=== PATIENT | male | born 1995 ===

== ENCOUNTER 2023-11-17 15:12 | Outpatient (REF) | payer OTHER, SELFPAY ==
[2023-11-18 09:34] LABS: HBS Num1 0.46 mIU/mL (0-7.99); HIV AB/AG Nonreactive (Nonreactive); HIV Num 1 0.05 S/CO (0.00-0.99); Hepatitis B Surface Antigen Negative (Negative); ~HepC Num1 0.11 S/CO (0.00-0.79); ~Hepatitis B Surface Antibody NONREACTIVE (Nonreactive); ~Hepatitis C Antibody Nonreactive (Nonreactive)
[2023-11-19 04:44] LABS: RPR Rapid Plasma Reagin REACTIVE (NON-REACTIVE)
[2023-11-19 16:44] LABS: HCV Log PCR <1.18 NOT DETECTED Log IU/mL (NOT DETECTED); HepC Viral Load <15 NOT DETECTED IU/mL (NOT DETECTED)
[2023-11-20 13:23] LABS: TS Negative Control Passed; TS Panel A 0; TS Panel B 0; TS Positive Control Passed; TSpotTB Negative (Negative)
== END 2023-11-17 15:13 | disposition home or self-care (01) ==
LOC: HO.LAB 15:12
PROVIDERS: PCP Family Medicine; Visit Provider Internal Medicine
DX: A53.9 Syphilis, unspecified (principal); Z11.1 Encounter for screening for respiratory tuberculosis
CPT/HCPCS: 36415; 86481; 86592; 86593; 86706; 86803; 87340; 87389; 87522; 99202

== ENCOUNTER 2023-11-17 15:12 | Outpatient (AMB) | payer OTHER, SELFPAY ==
--- NOTE | 2023-11-17 15:12 | MHC.OFFVIS ---
Intake Vital Signs 11/17/23 15:14 Height 5 ft 10 in Weight 165 lb BMI 23.7 Pulse 69 Pulse Source Pulse Oximeter Pulse Oximetry (%) 98 Intake Visit Reasons: reff pioneer uro/syphillis Allergies Sulfa (Sulfonamide Antibiotics) Allergy (Unknown, Verified 11/17/23 15:15) Unknown HPI reff pioneer uro/syphillis HPI Details He is here for evaluation syphilis. He has never had penicillin treatment he says. He has positive syphilis serology six months ago and received 14 days Doxycycline. He had been treated in 2019 at [facility] with Doxycycline also. He is unsure of HIV status. [facility] Medical History Syphilis Review of Systems Const All systems reviewed & are unremarkable except as noted in HPI and below Physical Exam Vital Signs: Last Vital Signs Pulse 69 11/17/23 15:14 Pulse Ox 98 11/17/23 15:14 BMI result Body Mass Index 23.7 Const General: cooperative Orientation/consciousness: patient oriented x3 HEENT Head: Yes normal to inspection Mouth: Normal oral and palatal mucosa present Eyes General: appearance normal, both eyes and all related structures Pupils: Equal, round and reactive pupils present Resp Effort & Inspection: normal respiratory effort Cardio Rate: regular rate Rhythm: regular rhythm GI Palpation (GI): Soft to palpation and nontender General: Yes no CVA tenderness Back/Spine/Pelvis Back: no CVA tenderness Skin General skin exam: no rashes or lesions noted Neuro General: patient oriented x3 Cranial nerves: Yes CN's II-XII intact bilaterally and Yes Equal, round and reactive pupils present Extrem General: Yes normal to inspection Psych Appearance: grossly normal Assessment & Plan Assessment & Plan (1) Syphilis: Comment: He has had no lesions but complains of pelvic pain. He denies other STIs Code(s): A53.9 - Syphilis, unspecified Plan: Would give PCN V 2.4 mU weekly for three weeks. Check HIV and Hepatitis C and T spot as well as urine GC and chlamydia. Return in one month and likely check syphilis titer then. Orders: Orders RPR Monitor reflex titer 11/17/23 A53.9 - Syphilis, unspecified Hepatitis C Antibody 11/17/23 A53.9 - Syphilis, unspecified Hepatitis C Viral Load 11/17/23 A53.9 - Syphilis, unspecified Hepatitis B Surface Antibody 11/17/23 A53.9 - Syphilis, unspecified HIV Ab/Ag 11/17/23 A53.9 - Syphilis, unspecified T Spot TB 11/17/23 A53.9 - Syphilis, unspecified Hepatitis B Surface Antigen 11/17/23 A53.9 - Syphilis, unspecified Medications: New penicillin G benzathine 2.4 mmu (4 mL) IM QWEEK 4 mL 2RF penicillin G benzathine 2.4 mmu (4 mL) IM QWEEK 4 mL 2RF doxycycline hyclate 100 mg PO BID 60 caps 0RF 30 days penicillin G benzathine 2.4 mmu (4 mL) IM QWEEK 4 mL 2RF 3 doses Coding Level of Care Code New Pt Level 3 (85194) Diagnoses Syphilis A53.9
[2023-11-17 15:14] VITALS: PULSE 69; O2SAT 98; BMI 23.7
== END 2023-11-17 16:12 | disposition home or self-care (01) ==
PROVIDERS: PCP Emergency Medicine Emergency Medical Services; Visit Provider Internal Medicine
DX: A53.9 Syphilis, unspecified (principal)
CPT/HCPCS: 99203

== ENCOUNTER 2023-11-24 12:50 | Outpatient (AMB) | payer OTHER, SELFPAY ==
--- NOTE | 2023-11-24 13:11 | MHC.OFFVIS ---
Intake Vital Signs 11/24/23 13:19 Height 5 ft 10 in Weight 174 lb BMI 25.0 BP 111/67 Blood Pressure Location Lt brachial Position Sitting Pulse 80 Pulse Source Pulse Oximeter Pulse Oximetry (%) 98 Intake Visit Reasons: Injection,Peniccilin Allergies Sulfa (Sulfonamide Antibiotics) Allergy (Unknown, Verified 11/24/23 13:20) Unknown [facility] Medical History Syphilis Physical Exam Vital Signs: Last Vital Signs Pulse 80 11/24/23 13:19 BP 111/67 11/24/23 13:19 Pulse Ox 98 11/24/23 13:19 BMI result Body Mass Index 25.0 Coding
[2023-11-24 13:19] VITALS: BP 111/67; PULSE 80; O2SAT 98; BMI 25.0
--- NOTE | 2023-11-24 13:25 | AM.OFFVISNUR ---
Intake Vital Signs 11/24/23 13:19 Height 5 ft 10 in Weight 174 lb BMI 25.0 BP 111/67 Blood Pressure Location Lt brachial Position Sitting Pulse 80 Pulse Source Pulse Oximeter Pulse Oximetry (%) 98 Intake Visit Reasons: Injection,Peniccilin Drum Attendant Required: No Allergies Sulfa (Sulfonamide Antibiotics) Allergy (Unknown, Verified 11/24/23 13:20) Unknown Nursing Note Ace is here for PCN IM injection. No c/o. Pt tolerated injection well. First injection of 3. Pt will return next week for second injection. Pt verbalizes understanding and agrees with plan. No further questions. Office Meds penicillin G benzathine 2,400,000 unit/4 mL intramuscular syringe Performing Provider: Liliya Dolan MD Performing Location: [facility] [place] [facility] Administered by: Diamond Delgado on 11/24/23 13:41 Dose Route Admin Location Dispensed Lot Number Expiration Date [facility] [place] Rip Machine Operator 2.4 mmu IM LGM 4 mL [id number] 06/12/26 36274-432-14 [employer] Coding Level of Care Code Established Pt Est Pt Level 1 (82824) Patient Type Established History Problem Focused Medical Decision Making Straight Forward Time Spent (min) 15 Assessment & Plan Assessment & Plan Plan Return in 1 week for second injection, appt. scheduled. Orders: Orders AMB Penicillin Injection Today A53.9 - Syphilis, unspecified
== END 2023-11-24 13:45 | disposition home or self-care (01) ==
LOC: HO.HID 12:51
PROVIDERS: PCP Family Medicine; Visit Provider Internal Medicine
DX: A53.9 Syphilis, unspecified (principal)

== ENCOUNTER → 2023-11-24 12:50 | Outpatient (BNVA) | payer OTHER, SELFPAY | PROVIDERS: PCP Family Medicine; Visit Provider Internal Medicine | DX: A53.9 Syphilis, unspecified (principal) | CPT/HCPCS: 96372; 99211; J0561 ==

== ENCOUNTER 2023-12-01 13:13 | Outpatient (AMB) | payer OTHER, SELFPAY ==
[2023-12-01 13:33] VITALS: BP 121/67; PULSE 72; O2SAT 99; BMI 24.7
--- NOTE | 2023-12-01 13:33 | AM.OFFVISNUR ---
Intake Vital Signs 12/01/23 13:33 Height 5 ft 10 in Weight 172 lb BMI 24.7 BP 121/67 Blood Pressure Location Lt brachial Position Sitting Pulse 72 Pulse Source Pulse Oximeter Pulse Oximetry (%) 99 Intake Visit Reasons: Injection,penicillin Oracle R12 Developer Required: No Allergies Sulfa (Sulfonamide Antibiotics) Allergy (Unknown, Verified 12/01/23 13:37) Unknown Nursing Note Ace is here for second injection of 3. He reported left leg discomfort following his first injection last week x4-5 days. He reports pain has resolved. Injection given on right side today. Pt tolerated injection well. Pt will return for third injection in 1 week. No further questions. Pt verbalizes understanding and agrees with plan. Office Meds penicillin G benzathine 2,400,000 unit/4 mL intramuscular syringe Performing Provider: Liliya Dolan MD Performing Location: [facility] [place] [facility] Administered by: Diamond Delgado on 12/01/23 13:51 Dose Route Admin Location Dispensed Lot Number Expiration Date [facility] Rough Planer Tender 2.4 mmu IM RGM 4 mL [id number] 06/12/26 91658-780-23 [employer] Coding Level of Care Code Established Pt Est Pt Level 1 (73176) Patient Type Established History Problem Focused Medical Decision Making Straight Forward Time Spent (min) 15 Assessment & Plan Assessment & Plan Orders: Orders AMB Penicillin Injection Today A53.9 - Syphilis, unspecified
== END 2023-12-01 13:54 | disposition home or self-care (01) ==
LOC: HO.HID 13:13
PROVIDERS: PCP Family Medicine; Visit Provider Internal Medicine
DX: A53.9 Syphilis, unspecified (principal)

== ENCOUNTER → 2023-12-01 13:13 | Outpatient (BNVA) | payer OTHER, SELFPAY | PROVIDERS: PCP Family Medicine; Visit Provider Internal Medicine | DX: A53.9 Syphilis, unspecified (principal) | CPT/HCPCS: 96372; 99211; J0561 ==

== ENCOUNTER 2023-12-08 13:18 | Outpatient (AMB) | payer OTHER, SELFPAY ==
[2023-12-08 13:19] VITALS: BP 117/73; PULSE 61; O2SAT 98; BMI 25.0
--- NOTE | 2023-12-08 13:19 | AM.OFFVISNUR ---
Intake Vital Signs 12/08/23 13:19 Height 5 ft 10 in Weight 174 lb BMI 25.0 BP 117/73 Blood Pressure Location Lt brachial Position Sitting Pulse 61 Pulse Source Pulse Oximeter Pulse Oximetry (%) 98 Intake Visit Reasons: injection,penicillin Cvt Tech Required: No Allergies Sulfa (Sulfonamide Antibiotics) Allergy (Unknown, Verified 12/08/23 13:29) Unknown Nursing Note Pt is here for his third and final Penicillin injection. No c/o. Pt tolerated injection well. Pt was advised he will receive a call back re: CINTIA. Pt verbalizes understanding and agrees with plan. No further questions. Office Meds penicillin G benzathine 2,400,000 unit/4 mL intramuscular syringe Performing Provider: Liliya Dolan MD [place] [facility] [place] [facility] Administered by: Diamond Delgado on 12/08/23 13:36 Dose Route Admin Location Dispensed Lot Number Expiration Date [facility] Motor Pool Driver 2.4 mmu IM LGM 4 mL [id number] 06/12/26 38691-171-52 [employer] Coding Level of Care Code Established Pt Est Pt Level 1 (04005) Patient Type Established History Problem Focused Medical Decision Making Straight Forward Time Spent (min) 15 Assessment & Plan Assessment & Plan Orders: Orders AMB Penicillin Injection Today A53.9 - Syphilis, unspecified
== END 2023-12-08 13:42 | disposition home or self-care (01) ==
LOC: HO.HID 13:18
PROVIDERS: PCP Emergency Medicine Emergency Medical Services; Visit Provider Internal Medicine
DX: A53.9 Syphilis, unspecified (principal)

== ENCOUNTER → 2023-12-08 13:18 | Outpatient (BNVA) | payer OTHER, SELFPAY | PROVIDERS: PCP Emergency Medicine Emergency Medical Services; Visit Provider Internal Medicine | DX: A53.9 Syphilis, unspecified (principal) | CPT/HCPCS: 96372; J0561 ==

== ENCOUNTER 2024-03-17 12:10 | Outpatient (REF) | payer OTHER, SELFPAY ==
[2024-03-20 12:59] LABS: RPR Rapid Plasma Reagin REACTIVE (NON-REACTIVE)
== END 2024-03-17 12:11 | disposition home or self-care (01) ==
LOC: HO.LAB 12:10
PROVIDERS: Visit Provider Internal Medicine
DX: Z11.3 Encounter for screening for infections with a predominantly sexual mode of transmission (principal)
CPT/HCPCS: 36415; 86592; 86593

== ENCOUNTER 2024-03-29 15:05 | Outpatient (AMB) | payer OTHER, SELFPAY ==
--- NOTE | 2024-03-29 15:11 | A.OFFVIS_ITS ---
Vital Signs 03/29/24 15:13 Height 5 ft 10 in Weight 166 lb BMI 23.8 Pulse 85 Pulse Source Pulse Oximeter Pulse Oximetry (%) 98 Oxygen Delivery Method Room Air Intake Visit Reasons: f/u 3 mth labs recheck rpr Allergies Sulfa (Sulfonamide Antibiotics) Allergy (Unknown, Verified 03/29/24 15:13) Unknown HPI HPI f/u 3 mth labs recheck rpr: Details: He has RPR 11/17/2023 and 03/17/2024 both 1:2 He has no rash at this time and just some occasional fatigue and back pain. He denies syphilis reexposure. [facility] Medical History Syphilis Review of Systems Const All systems reviewed & are unremarkable except as noted in HPI and below Physical Exam Vital Signs: Last Vital Signs Pulse 85 03/29/24 15:13 Pulse Ox 98 03/29/24 15:13 Oxygen Delivery Method Room Air 03/29/24 15:13 BMI result Body Mass Index 23.8 Const General: cooperative Orientation/consciousness: patient oriented x3 HEENT Head: Yes normal to inspection Mouth: Normal oral and palatal mucosa present Eyes General: appearance normal, both eyes and all related structures Pupils: Equal, round and reactive pupils present Resp Effort & Inspection: normal respiratory effort Cardio Rate: regular rate Rhythm: regular rhythm GI Palpation (GI): Soft to palpation and nontender General: Yes no CVA tenderness Back/Spine/Pelvis Back: no CVA tenderness Skin General skin exam: no rashes or lesions noted Neuro General: patient oriented x3 Cranial nerves: Yes CN's II-XII intact bilaterally and Yes Equal, round and reactive pupils present Extrem General: Yes normal to inspection Psych Appearance: grossly normal Assessment & Plan Assessment & Plan (1) Syphilis: Comment: He has still syphilis titer 1:2 but denies reinfection Code(s): A53.9 - Syphilis, unspecified Category: Medical Plan: Re check syphilis titer in June 2024. Treat any current partners. No treatment at this time, may be serofast at this value Orders: Orders RPR Monitor reflex titer 3 Months A53.9 - Syphilis, unspecified Medications: New doxycycline hyclate 100 mg PO BID 60 caps 1RF 30 days Coding Level of Care Code Est Pt Level 3 (02415) Diagnoses Syphilis A53.9
[2024-03-29 15:13] VITALS: PULSE 85; O2SAT 98; BMI 23.8
== END 2024-03-29 15:56 | disposition home or self-care (01) ==
LOC: HO.HID 15:05
PROVIDERS: PCP Emergency Medicine Emergency Medical Services; Visit Provider Internal Medicine
DX: A53.9 Syphilis, unspecified (principal)
CPT/HCPCS: 99213

== ENCOUNTER → 2024-03-29 15:05 | Outpatient (BNVA) | payer OTHER, SELFPAY | PROVIDERS: PCP Emergency Medicine Emergency Medical Services; Visit Provider Internal Medicine | DX: A53.9 Syphilis, unspecified (principal) | CPT/HCPCS: 99212 ==

== ENCOUNTER 2024-06-23 16:22 | Outpatient (REF) | payer OTHER, SELFPAY ==
[2024-06-27 15:34] LABS: RPR Rapid Plasma Reagin REACTIVE (NON-REACTIVE)
== END 2024-06-23 16:23 | disposition home or self-care (01) ==
LOC: HO.LAB 16:22
PROVIDERS: Visit Provider Internal Medicine
DX: A53.9 Syphilis, unspecified (principal)
CPT/HCPCS: 36415; 86592; 86593

== ENCOUNTER 2024-07-19 13:26 | Outpatient (AMB) | payer OTHER, SELFPAY ==
--- NOTE | 2024-07-19 13:28 | A.OFFVIS_ITS ---
Vital Signs 07/19/24 13:31 Height 5 ft 10 in Weight 176 lb BMI 25.3 Pulse 85 Pulse Source Pulse Oximeter Pulse Oximetry (%) 99 Intake Visit Reasons: f/u lab Allergies Sulfa (Sulfonamide Antibiotics) Allergy (Unknown, Verified 07/19/24 13:30) Unknown HPI HPI f/u lab: Details: He had syphilis. Titer is 1:2 persistent ,no increase He has no symptoms. [facility] Medical History Syphilis Review of Systems Const All systems reviewed & are unremarkable except as noted in HPI and below Physical Exam Vital Signs: Last Vital Signs Pulse 85 07/19/24 13:31 Pulse Ox 99 07/19/24 13:31 BMI result Body Mass Index 25.3 Const General: cooperative HEENT Head: Yes normal to inspection Face and sinus: Yes normal facial exam Mouth: Normal oral and palatal mucosa present Teeth and gingiva: dentition normal Eyes General: appearance normal, both eyes and all related structures Pupils: Equal, round and reactive pupils present Resp Effort & Inspection: normal respiratory effort Cardio Rate: regular rate Rhythm: regular rhythm GI Palpation (GI): Soft to palpation and nontender General: Yes no CVA tenderness Back/Spine/Pelvis Back: no CVA tenderness Skin General skin exam: no rashes or lesions noted Neuro General: moves all extremities Cranial nerves: Yes Equal, round and reactive pupils present Extrem General: Yes normal to inspection Psych Appearance: grossly normal Assessment & Plan Assessment & Plan (1) Syphilis: Comment: He has still syphilis titer 1:2 but denies reinfection Code(s): A53.9 - Syphilis, unspecified Category: Medical Plan: No further treatment at this time Follow every six months or prn need. Coding Level of Care Code Est Pt Level 3 (73806) Diagnoses Syphilis A53.9
[2024-07-19 13:31] VITALS: PULSE 85; O2SAT 99; BMI 25.3
== END 2024-07-19 14:20 | disposition home or self-care (01) ==
LOC: HO.HID 13:27
PROVIDERS: PCP Emergency Medicine Emergency Medical Services; Visit Provider Internal Medicine
DX: A53.9 Syphilis, unspecified (principal)
CPT/HCPCS: 99213

== ENCOUNTER → 2024-07-19 13:26 | Outpatient (BNVA) | payer OTHER, SELFPAY | PROVIDERS: PCP Emergency Medicine Emergency Medical Services; Visit Provider Internal Medicine | DX: A53.9 Syphilis, unspecified (principal) | CPT/HCPCS: 99212 ==

== ENCOUNTER 2024-11-06 15:54 | Outpatient (AMB) | payer OTHER, SELFPAY ==
[2024-11-06 15:53] VITALS: PULSE 82; O2SAT 99; BMI 27.8
--- NOTE | 2024-11-06 15:53 | A.OFFVIS_ITS ---
Vital Signs 11/06/24 15:53 Height 5 ft 10 in Weight 194 lb BMI 27.8 Pulse 82 Pulse Source Pulse Oximeter Pulse Oximetry (%) 99 Oxygen Delivery Method Room Air Intake Visit Reasons: elevated RPR test Allergies Sulfa (Sulfonamide Antibiotics) Allergy (Unknown, Verified 11/06/24 16:13) Unknown HPI Comments Details: He claims he has chronic pelvic pain and headaches and fatigue due to syphilis. He has been treated with penicillin and still has 1:2 titer and said two doctors and [facility] told him he has active syphilis. He also said two Urologists referred him back here. He has been HIV negative. He wants LP due to his own research and wants another [place] physician. [facility] Medical History Syphilis Review of Systems Const All systems reviewed & are unremarkable except as noted in HPI and below Physical Exam Vital Signs: Last Vital Signs Pulse 82 11/06/24 15:53 Pulse Ox 99 11/06/24 15:53 Oxygen Delivery Method Room Air 11/06/24 15:53 BMI result Body Mass Index 27.8 Const General: cooperative Orientation/consciousness: patient oriented x3 HEENT Head: Yes normal to inspection Mouth: Normal oral and palatal mucosa present Eyes Other: ?slt slow pupil reaction General: appearance normal, both eyes and all related structures Pupils: Equal, round and reactive pupils present Resp Effort & Inspection: normal respiratory effort Cardio Rate: regular rate Rhythm: regular rhythm GI Palpation (GI): Soft to palpation and nontender Other: declines,says nothing in groin area to see General: Yes no CVA tenderness Back/Spine/Pelvis Back: no CVA tenderness Skin General skin exam: no rashes or lesions noted Neuro General: patient oriented x3 Cranial nerves: Yes CN's II-XII intact bilaterally and Yes Equal, round and reactive pupils present Extrem General: Yes normal to inspection Psych Appearance: grossly normal Assessment & Plan Assessment & Plan (1) Syphilis: Comment: He has still syphilis titer 1:2 but denies reinfection Likely serofast and not active at this level but patient refuses to believe this and says nobody knows what they're doing Code(s): A53.9 - Syphilis, unspecified Category: Medical Plan: Can check LP but doubt active syphilis. Would not give any additional antibiotics unless abnormal LP,told patient LP warranted with high titers above 1:32 or eye or otic problems. Coding Level of Care Code Est Pt Level 3 (38172) Diagnoses Syphilis A53.9
--- OUTSIDE RECORDS SUMMARY | 2024-11-06 18:08 | XMS_ITS | Clinical Summary ---
Author Organization [facility] Address [address] [place] [address] Care Team Providers Care Entertainment Reporter Name Role Phone Unavailable Primary Care Provider Unavailabl e Allergies Active Allergy Reactions Criticality Noted Date Comments Sulfa Antibiotics 01/02/2016 Medications Medication Sig Dispensed Refills Start Date End Date Status doxycycline (ADOXA) 100 MG tablet Take 100 mg by mouth 2 (two) times a day. 0 Active oxyCODONE (ROXICODONE) 5 MG immediate release tablet Take 1 tablet (5 mg total) by mouth every 4 (four) hours as needed for pain. 15 tablet 0 01/03/2016 Active Immunizations Name Administration Dates Next Due Tdap 01/02/2016 Social History Tobacco Use Types Packs/Day Years Used Date Smoking Tobacco: Former Smokeless Tobacco: Current Snuff Tobacco Cessation:Ready to Q uit: No; Counseling Given: Yes Alcohol Use Standard Drinks/Week Comments Yes 1 (1 standard drink = 0.6 oz pur e alcohol) Sex and Gender Information Value Date Recorded Sex Assigned at Not on file Gender Identity Not on file Sexual Orientation Not on file Last Filed Vital Signs Vital Sign Reading Time Taken Comments Blood Pressure 138/88 01/03/2016 3:12 AM EDT Pulse 57 01/03/2016 3:12 AM EDT Temperature 36.7 ??C (98 ??F) 01/03/2016 3:12 AM EDT Respiratory Rate 16 01/03/2016 3:12 AM EDT Oxygen Saturation 97% 01/03/2016 3:12 AM EDT Inhaled Oxygen Concentration - - Weight - - Height - - Body Mass Index - - Plan of Treatment Health Maintenance Due Date Last Done Comments Hepatitis B Vaccines (1 of 3 - 3-dose series) 1993 Hepatitis C Screening 1993 COVID-19 Vaccine (#1) 04/04/1994 Depression Screening 2005 Preventative Health Evaluation 2011 Influenza Vaccine (#1) 2024 DTap / Tdap / Td (2 - Td or Tdap) 01/01/2026 016 Pneumococcal Vaccine Aged Out No long er eligible based on patient's age to complete this topic RSV Ped < 20 months Aged Out No longe r eligible based on patient's age to complete this topic Advance Directives For more information, please contact: [phone] Latest Code Status on File Code Status Date Activated Date Inactivated Comments Full Code 01/02/2016 10:53 PM 01/03/2016 9:32 AM This code status was ascertained in the following way: discussion with patient.
--- OUTSIDE RECORDS SUMMARY | 2024-11-06 18:08 | XMS_ITS | Clinical Summary ---
Author Organization [address] Address [address] [place] [phone] Phone Care Team Providers Care Door Puller Name Role Phone Ana Donaldson DO Primary Care Provider [phone] Allergies Active Allergy Reactions Criticality Noted Date Comments Sulfa (Sulfonamide Antibiotics) 05/15 Migraine headache Medications No known medications Active Problems Problem Noted Date Diagnosed Date Syphilis 01/05/2023 Overweight (BMI 25.0-29.9) 11/25/2021 History of alcohol abuse 07/04/2021 Anxiety 06/10/2021 Chronic low back pain 06/10/2021 Encounters Date Type Department Care Team Description 10/19/2024 8:30 AM EST Office Visit Director Child Abuse Therapy - [address] [phone] Ace Shultz PA Other fatigue (Primary Dx); Low libido 09/25/2024 12:30 PM EST Office Visit Internal Medicine - [address] [phone] Virgilio Soni MD Dysuria (Primary Dx); Syphilis 09/25/2024 Telephone Internal Medicine - [address] [phone] Ana Donaldson DO Exposure to STD from Last 3 Months Immunizations Name Administration Dates Next Due Tdap Tetanus diptheria acell ular pertussis (Boostrix; Adacel) 7yo and older 04/22/2019,01/02/2016 Surgical History Surgery Date Site/Laterality Comments ANKLE SURGERY PROCEDURE: HISTORICAL ANKLE SURGERY Medical History Medical History Date Comments Chronic low back pain 06/10/2021 DX:Chronic low back pain Anxiety 06/10/2021 DX:Anxiety Panic attacks 06/10/2021 DX:Panic attacks History of alcohol use disorder DX:History of alcohol use disorder Tobacco use DX:Tobacco use Family History Medical History Relation Name Comments No Known Problems Brother 1 No Known Problems Brother 2 No Known Problems Brother 3 No Known Problems Brother 4 Diabetes Father Depression Mother No Known Problems Sister Relation Name Status Comments Brother 1 Alive Brother 2 Alive Brother 3 Alive Brother 4 Alive Father Alive Mother Sister Alive Social History Tobacco Use Types Packs/Day Years Used Date Smoking Tobacco: Former Cigarettes 1 8.1 S tarted: 09/13/2016 Smokeless Tobacco: Former Tobacco Cessation:Counseling Given: Not Answered Alcohol Use Standard Drinks/Week Comments Yes 0 (1 standard drink = 0.6 oz pur e alcohol) Sex and Gender Information Value Date Recorded Sex Assigned at Not on file Legal Sex Male 12:52 PM EST Gender Identity Not on file Sexual Orientation Not on file Obstetrics History Last Filed Vital Signs Vital Sign Reading Time Taken Comments Blood Pressure 96/62 10/19/2024 8:43 AM EST Pulse 74 10/19/2024 8:43 AM EST Temperature - - Respiratory Rate 16 10/19/2024 8:43 AM EST Oxygen Saturation - - Inhaled Oxygen Concentration - - Weight 81.9 kg (180 lb 9.6 oz) 10/19/2024 8:43 A M EST Height 177.8 cm (5' 10 ) 09/25/2024 12:31 PM EST Body Mass Index 25.91 09/25/2024 12:31 PM EST Plan of Treatment Health Maintenance Due Date Last Done Comments Hepatitis B Vaccines (1 of 3 - 19+ 3-dose series) 2012 Depression Screening 08/22/2022 Social Influencers of Health Screening 08/22/2022 COVID-19 Vaccine (1 2023-2 5 season) 2024 DTaP,Tdap,and Td Vaccines (3 - Td or Tdap) 04/22/2029 04/22/2019, 01/02/2016 Cholesterol Screening (Lipid Panel) 09/25/2029 09/25/2024, 06/10/2021 HIV Screening Completed 09/25/2024, 08/04/2024 Hepatitis C Screening Completed 09/25/2024 , 08/04/2024 HIB Vaccines Aged Out No longer eligi ble based on patient's age to complete this topic HPV Vaccines Aged Out No longer eligi ble based on patient's age to complete this topic Hepatitis A Vaccines Aged Out No long er eligible based on patient's age to complete this topic IPV Vaccines Aged Out No longer eligi ble based on patient's age to complete this topic Influenza Vaccine Discontinued MMR Vaccines Aged Out No longer eligi ble based on patient's age to complete this topic Meningococcal ACWY Vaccine Aged Out N o longer eligible based on patient's age to complete this topic Meningococcal B Vacine Aged Out No lo nger eligible based on patient's age to complete this topic Pneumococcal Vaccine: Pediatrics (0 to 5 Years) and At-Risk Patients (6 to 64 Years) Aged Out No longer eligible based on patient's age to complete this topic RSV Immunization Patients Under 20 months Aged Out No longer eligible based on patient's age to complete this topic Varicella Vaccines Aged Out No longer eligible based on patient's age to complete this topic Procedures Procedure Name Priority Date/Time Associated Diagnosis Comments CBC WITH AUTO DIFFERENTIAL Routine 10/19/2024 9:55 AM EST Other fatigue BASIC METABOLIC PANEL Routine 10/19/2024 9:55 AM EST Other fatigue CBC AND DIFFERENTIAL Routine 10/19/2024 9:55 AM EST Other fatigue THYROID STIMULATING HORMONE WITH REFLEX TO FREE T4 AND FREE T3 Routine 10/19/2024 9:55 AM EST Other fatigue TESTOSTERONE FREE, BIOAVAILABLE AND TOTAL Routine 10/19/2024 9:55 AM EST Other fatigue RAPID PLASMA REAGIN TITER Routine 09/25/2024 1:09 PM EST Dysuria RAPID PLASMA REAGIN WITH REFLEX TO TITER Routine 09/25/2024 1:09 PM EST Dysuria COMPREHENSIVE METABOLIC PANEL Routine 09/25/2024 1:09 PM EST Screening cholesterol level HIV 1, 2 ANTIBODY, P24 ANTIGEN WITH REFLEX TO DIFFERENTIATION Routine 09/25/2024 1:09 PM EST Dysuria TREPONEMA PALLIDUM ANTIBODY WITH REFLEX TO RPR AND PARTICLE AGGLUTINATION Routine 09/25/2024 1:09 PM EST Dysuria HERPES SIMPLEX VIRUS 1 AND 2, IGG Routine 09/25/2024 1:09 PM EST Dysuria LIPID PANEL WITH REFLEX TO DIRECT LDL Routine 09/25/2024 1:09 PM EST Screening cholesterol level HEPATITIS PANEL, ACUTE WITH REFLEX TO CONFIRMATION Routine 09/25/2024 1:09 PM EST Dysuria CULTURE URINE Routine 09/25/2024 1:09 PM EST Dysuria CHLAMYDIA TRACHOMATIS AND NEISSERIA GONORRHOEAE PCR Routine 09/25/2024 1:09 PM EST Dysuria from Last 3 Months Results * Thyroid stimulating hormone with reflex to free t4 and free t3 (10/19/2024 9:55 AM EST) TSH 2.85 0.40 - 4.00 mcIU/mL LAB CHEMISTRY METHOD 10/19/2024 10:44 AM EST [facility] Blood Venous blood specimen / Unknown Venipuncture / Unknown 10/19/2024 9:55 AM EST 10/19/2024 10:04 AM EST us Ace CARLISLE LAB BLOOD ORDERABLES Fi nal Result [facility] [address] [place] [address], [place] [phone] * Testosterone free, bioavailable and total (10/19/2024 9:55 AM EST) Testosterone 487 229 - 902 ng/dL LAB CHEMISTRY METHOD 10/19/2024 11:46 AM [facility] Testosterone, Free 11.1 4.6 - 22.4 ng/dL LAB CHEMISTRY METHOD 10/19/2024 11:46 AM [facility] Testosterone, Bioavailable 243 110 - 575 ng/dL LAB CHEMISTRY METHOD 10/19/2024 11:46 AM [facility] Sex Hormone Binding 30.5 See Comment nmol/L LAB CHEMISTRY METHOD 10/19/2024 11:46 AM [facility] Comment: FEMALES: ??pre-menopausal ?? 10.8 - >180 ??post-menopausal ??23.2 - 159.1 MALES: ?? 21-49 years ? 14.6 - 94.6 ?? 50-89 years ? 21.6 - 113.1 CHILDREN: ??No established reference range Over the counter supplements containing high doses of biotin may interfere with this assay. ??If interference is suspected, patients should be retested after refraining from biotin supplements for 72 hours. Albumin 4.0 3.2 - 5.0 g/dL LAB CHEMISTRY METHOD 10/19/2024 11:46 AM [facility] Blood Venous blood specimen / Unknown Venipuncture / Unknown 10/19/2024 9:55 AM EST 10/19/2024 10:04 AM EST Ace CARLISLE LAB BLOOD ORDERABLES Fi nal Result [facility] [address] [place] [address], * CBC auto differential (10/19/2024 9:55 AM EST) [facility] WBC 6.4 4.8 - 10.8 K/mcL LAB HEMETOLOGY METHOD 10/19/2024 10:14 AM [facility] RBC 4.80 4.50 - 5.50 M/mcL LAB HEMETOLOGY METHOD 10/19/2024 10:14 AM [facility] Hemoglobin 14.0 13.5 - 17.5 g/dL LAB HEMETOLOGY METHOD 10/19/2024 10:14 AM [facility] Hematocrit 42.4 42.0 - 54.0 % LAB HEMETOLOGY METHOD 10/19/2024 10:14 AM [facility] MCV 88.1 79.0 - 98.0 FL LAB HEMETOLOGY METHOD 10/19/2024 10:14 AM [facility] MCH 29.1 27.0 - 32.0 pcg LAB HEMETOLOGY METHOD 10/19/2024 10:14 AM [facility] MCHC 33.0 32.0 - 37.0 g/dL LAB HEMETOLOGY METHOD 10/19/2024 10:14 AM [facility] RDW 13.2 11.0 - 15.0 % LAB HEMETOLOGY METHOD 10/19/2024 10:14 AM [facility] Platelets 299 130 - 400 K/mcL LAB HEMETOLOGY METHOD 10/19/2024 10:14 AM [facility] MPV 9.6 7.0 - 11.0 FL LAB HEMETOLOGY METHOD 10/19/2024 10:14 AM [facility] NRBC 0.0 <1.0 % LAB HEMETOLOGY METHOD 10/19/2024 10:14 AM [facility] NRBC Absolute 0.00 <0.10 K/mcL LAB HEMETOLOGY METHOD 10/19/2024 10:14 AM [facility] Neutrophils Relative 44.3 % LAB HEMETOLOGY METHOD 10/19/2024 10:14 AM [facility] Lymphocytes Relative 38.6 % LAB HEMETOLOGY METHOD 10/19/2024 10:14 AM [facility] Monocytes Relative 10.7 % LAB HEMETOLOGY METHOD 10/19/2024 10:14 AM [facility] Eosinophils Relative 5.2 % LAB HEMETOLOGY METHOD 10/19/2024 10:14 AM [facility] Basophils Relative 0.9 % LAB HEMETOLOGY METHOD 10/19/2024 10:14 AM [facility] Immature Granulocytes Relative 0.3 % LAB HEMETOLOGY METHOD 10/19/2024 10:14 AM [facility] Neutrophils Absolute 2.83 1.50 - 7.00 K/mcL LAB HEMETOLOGY METHOD 10/19/2024 10:14 AM [facility] Lymphocytes Absolute 2.46 1.00 - 5.00 K/mcL LAB HEMETOLOGY METHOD 10/19/2024 10:14 AM [facility] Monocytes Absolute 0.68 0.20 - 1.00 K/mcL LAB HEMETOLOGY METHOD 10/19/2024 10:14 AM [facility] Eosinophils Absolute 0.33 0.00 - 0.50 K/mcL LAB HEMETOLOGY METHOD 10/19/2024 10:14 AM [facility] Basophils Absolute 0.06 0.00 - 0.20 K/mcL LAB HEMETOLOGY METHOD 10/19/2024 10:14 AM [facility] Immature Granulocytes Absolute 0.02 0.00 - 0.03 K/mcL LAB HEMETOLOGY METHOD 10/19/2024 10:14 AM [facility] Blood Venous blood specimen / Unknown Venipuncture / Unknown 10/19/2024 9:55 AM EST 10/19/2024 10:04 AM EST us Ace CARLISLE LAB BLOOD ORDERABLES Fi nal Result [facility] [address] [place] [address], [place] [phone] * Basic metabolic panel (10/19/2024 9:55 AM EST) Sodium 138 133 - 145 mmol/L LAB CHEMISTRY METHOD 10/19/2024 10:35 AM [facility] Potassium 4.7 3.5 - 5.5 mmol/L LAB CHEMISTRY METHOD 10/19/2024 10:35 AM [facility] Chloride 106 96 - 110 mmol/L LAB CHEMISTRY METHOD 10/19/2024 10:35 AM [facility] CO2 27 21 - 32 mmol/L LAB CHEMISTRY METHOD 10/19/2024 10:35 AM [facility] Anion Gap 5 3 - 11 LAB CHEMISTRY METHOD 10/19/2024 10:35 AM [facility] Glucose 97 70 - 100 mg/dL LAB CHEMISTRY METHOD 10/19/2024 10:35 AM [facility] BUN 13 5 - 25 mg/dL LAB CHEMISTRY METHOD 10/19/2024 10:35 AM [facility] Creatinine 0.93 0.70 - 1.30 mg/dL LAB CHEMISTRY METHOD 10/19/2024 10:35 AM [facility] eGFR 113 >=60 mL/min/1. 73m2 LAB CHEMISTRY METHOD 10/19/2024 10:35 AM [facility] Comment:Calculation based on the??Chronic Kidney Disease Epidemiology Collaboration (CKD-EPI) equation refit??without adjustment for race. BUN/Creatinine Ratio 14.0 LAB CHEMISTRY METHOD 10/19/2024 10:35 AM [facility] Calcium 9.4 8.5 - 10.5 mg/dL LAB CHEMISTRY METHOD 10/19/2024 10:35 AM [facility] Blood Venous blood specimen / Unknown Venipuncture / Unknown 10/19/2024 9:55 AM EST 10/19/2024 10:04 AM EST Ace CARLISLE LAB BLOOD ORDERABLES Fi nal Result Performing Organization Address [facility]/ZIP Co de Phone Number [facility] [address] [place] [address], [place] [phone] * HIV 1,2 antibody, p24 antigen with reflex to differentiation (09/25/2024 1:09 PM EST) HIV Combo AB/AG Negative Negative LAB CHEMISTRY METHOD 09/25/2024 7:01 PM EST [facility] Blood Venous blood specimen / Unknown Venipuncture / Unknown 09/25/2024 1:09 PM EST 09/25/2024 1:09 PM EST Narrative [facility] - 09/25/2024 7:01 PM EST This assay is a 4th generation assay allowing for earlier detection of HIV infection by detecting the presence of the HIV-1 p24 antigen as well as the traditional antibodies to HIV type 1 (including group O) and type 2. ??Use of a 4th generation assay is the current CDC recommendation for HIV screening. us Virgilio Soni MD LAB BLOOD ORDERABLES Final Res ult Performing Organization Address [facility] Co de Phone Number [facility] [address] [place] [address], [place] [phone] * (ABNORMAL) Treponema pallidum antibody with reflex to RPR and particle agglutination (09/25/2024 1:09 PM EST) T. Pallidum Antibodies Positive( A) Negative LAB CHEMISTRY METHOD 09/25/2024 6:32 PM EST [facility] Blood Venous blood specimen / Unknown Venipuncture / Unknown 09/25/2024 1:09 PM EST 09/25/2024 1:09 PM EST us Virgilio Soni MD LAB BLOOD ORDERABLES Final Res ult Performing Organization Address City/[facility]/ZIP Co de Phone Number [facility] [address] [place] [address], [place] [phone] * (ABNORMAL) Rapid plasma reagin titer (09/25/2024 1:09 PM EST) [facility] Rapid Plasma Reagin Titer 1:8(A) Nonreactive 09/26/2024 8:17 AM EST [facility] Blood Venous blood specimen / Unknown Venipuncture / Unknown 09/25/2024 1:09 PM EST 09/25/2024 6:32 PM EST us Virgilio Soni MD LAB BLOOD ORDERABLES Final Res ult [facility] [address] [place] [address], [place] [phone] * (ABNORMAL) Rapid plasma reagin with reflex to titer (09/25/2024 1:09 PM EST) [facility] RPR Reactive(A ) Nonreactive 09/26/2024 8:01 AM EST [facility] Blood Venous blood specimen / Unknown Venipuncture / Unknown 09/25/2024 1:09 PM EST 09/25/2024 6:32 PM EST us Virgilio Soni MD LAB BLOOD ORDERABLES Final Res ult [facility] [address] [place] [address], [place] [phone] * (ABNORMAL) Lipid panel with reflex to direct LDL (09/25/2024 1:09 PM EST) [facility] Cholesterol 179 0 - 200 mg/dL LAB CHEMISTRY METHOD 09/25/2024 6:14 PM EST [facility] Triglycerides 61 0 - 150 mg/dL LAB CHEMISTRY METHOD 09/25/2024 6:14 PM EST [facility] HDL 63 >=40 mg/dL LAB CHEMISTRY METHOD 09/25/2024 6:14 PM [facility] LDL Calculated 104(H) 0 - 100 mg/dL LAB CHEMISTRY METHOD 09/25/2024 6:14 PM [facility] VLDL Cholesterol Lexa 12.2 mg/dL LAB CHEMISTRY METHOD 09/25/2024 6:14 PM [facility] Non HDL Chol. (LDL+VLDL) 116 <145 mg/dL LAB CHEMISTRY METHOD 09/25/2024 6:14 PM [facility] Chol/HDL Ratio 2.8 0.0 - 4.4 LAB CHEMISTRY METHOD 09/25/2024 6:14 PM [facility] Blood Venous blood specimen / Unknown Venipuncture / Unknown 09/25/2024 1:09 PM EST 09/25/2024 1:09 PM EST Radha Jefferson REQUISITION APPROVER LAB BLOOD ORDERABLES Final Resul t [facility] [address] [place] [address], * Hepatitis panel, acute with reflex to confirmation (09/25/2024 1:09 PM EST) Hepatitis B Surface Ag Negative Negative LAB CHEMISTRY METHOD 09/25/2024 7:08 PM [facility] Hepatitis A Antibody IgM Negative Negative LAB CHEMISTRY METHOD 09/25/2024 7:08 PM [facility] Hep B Core IgM Negative Negative LAB CHEMISTRY METHOD 09/25/2024 7:08 PM EST [facility] Hepatitis C Antibody Negative Negative LAB CHEMISTRY METHOD 09/25/2024 7:08 PM [facility] Blood Venous blood specimen / Unknown Venipuncture / Unknown 09/25/2024 1:09 PM EST 09/25/2024 1:09 PM EST us Virgilio Soni MD LAB BLOOD ORDERABLES Final Res ult [facility] [address] [place] [address], [place] [phone] * Herpes simplex virus 1 and 2, IgG (09/25/2024 1:09 PM EST) HSV 1 IgG 0.12 <=0.90 index harjinder LAB CHEMISTRY METHOD 09/26/2024 9:23 AM EST [facility] HSV-1 IgG Interpretation Negative Negative LAB CHEMISTRY METHOD 09/26/2024 9:23 AM EST [facility] HSV 2 IgG 0.09 <=0.90 index harjinder LAB CHEMISTRY METHOD 09/26/2024 9:23 AM EST [facility] HSV-2 IgG Interpretation Negative Negative LAB CHEMISTRY METHOD 09/26/2024 9:23 AM EST [facility] Blood Venous blood specimen / Unknown Venipuncture / Unknown 09/25/2024 1:09 PM EST 09/25/2024 1:09 PM EST us Virgilio Soni MD LAB BLOOD ORDERABLES Final Res ult [facility] [address] [place] [address], [place] [phone] * Chlamydia trachomatis and Neisseria gonorrhoeae molecular study (09/25/2024 1:09 PM EST) Neisseria gonorrhoeae PCR Negative Negative LAB MOLECULAR DIAGNOSTICS METHOD 09/26/2024 8:36 AM EST [facility] Chlamydia trachomatis PCR Negative Negative LAB MOLECULAR DIAGNOSTICS METHOD 09/26/2024 8:36 AM EST [facility] Swab Urine specimen from urethra / Unknown Non-blood Collection / Unknown 09/25/2024 1:09 PM EST 09/25/2024 1:09 PM EST us Virgilio Soni MD LAB MICROBIOLOGY - GENERAL ORD ERABLES Final Result Performing Organization Address City/[facility]/ZIP Co de Phone Number [facility] [address] [place] [address], [place] [phone] * Culture urine (09/25/2024 1:09 PM EST) Pathologist [facility] [place] Culture, Urine No growth 09/26/2024 10:13 AM [facility] Urine Urine specimen from urethra / Unknown Non-blood Collection / Unknown 09/25/2024 1:09 PM EST 09/25/2024 1:09 PM EST us Virgilio Soni MD LAB MICROBIOLOGY - GENERAL ORD ERABLES Final Result Performing Organization Address [facility]/ZIP Co de Phone Number [facility] [address] [place] [address], [place] [phone] * (ABNORMAL) Comprehensive metabolic panel (09/25/2024 1:09 PM EST) Pathologist [facility] [place] Sodium 137 133 - 145 mmol/L LAB CHEMISTRY METHOD 09/25/2024 6:14 PM [facility] Potassium 4.3 3.5 - 5.5 mmol/L LAB CHEMISTRY METHOD 09/25/2024 6:14 PM [facility] Chloride 103 96 - 110 mmol/L LAB CHEMISTRY METHOD 09/25/2024 6:14 PM [facility] CO2 28 21 - 32 mmol/L LAB CHEMISTRY METHOD 09/25/2024 6:14 PM [facility] Anion Gap 6 3 - 11 LAB CHEMISTRY METHOD 09/25/2024 6:14 PM [facility] Glucose 80 70 - 100 mg/dL LAB CHEMISTRY METHOD 09/25/2024 6:14 PM [facility] BUN 16 5 - 25 mg/dL LAB CHEMISTRY METHOD 09/25/2024 6:14 PM [facility] Creatinine 1.00 0.70 - 1.30 mg/dL LAB CHEMISTRY METHOD 09/25/2024 6:14 PM [facility] eGFR 104 >=60 mL/min/1. 73m2 LAB CHEMISTRY METHOD 09/25/2024 6:14 PM [facility] Comment:Calculation based on the??Chronic Kidney Disease Epidemiology Collaboration (CKD-EPI) equation refit??without adjustment for race. BUN/Creatinine Ratio 16.0 LAB CHEMISTRY METHOD 09/25/2024 6:14 PM [facility] Calcium 9.6 8.5 - 10.5 mg/dL LAB CHEMISTRY METHOD 09/25/2024 6:14 PM [facility] AST (SGOT) 17 10 - 42 unit/L LAB CHEMISTRY METHOD 09/25/2024 6:14 PM [facility] ALT (SGPT) 25 10 - 60 unit/L LAB CHEMISTRY METHOD 09/25/2024 6:14 PM [facility] Alkaline Phosphatase 82 42 - 121 unit/L LAB CHEMISTRY METHOD 09/25/2024 6:14 PM [facility] Total Protein 8.4(H) 6.0 - 8.0 g/dL LAB CHEMISTRY METHOD 09/25/2024 6:14 PM [facility] Albumin 4.9 3.2 - 5.0 g/dL LAB CHEMISTRY METHOD 09/25/2024 6:14 PM [facility] Total Bilirubin 0.7 0.0 - 1.4 mg/dL LAB CHEMISTRY METHOD 09/25/2024 6:14 PM [facility] Blood Venous blood specimen / Unknown Venipuncture / Unknown 09/25/2024 1:09 PM EST 09/25/2024 1:09 PM EST us Radha Jefferson NP LAB BLOOD ORDERABLES Final Resul t [facility] [address] [place] [address], from Last 3 Months Insurance [facility] Care Teams Door Puller Relationship Specialty Start Date End Date Ana Donaldson DO [address] [place] [address] PCP - General Internal Medicine 07/19/24
--- OUTSIDE RECORDS SUMMARY | 2024-11-06 18:08 | XMS_ITS | Encounter Summary ---
Author Organization [facility] Address [address] [place] [address] Care Team Providers Care Lasting Room Machine Operator Name Role Phone UrbanoAna rahman Primary Care Provider [phone] Reason for Visit * Reason Comments Labs Only Follow-up Encounter Details Date Type Department Care Team (Late st Contact Info) Description 10/19/2024 8:30 AM EST Office Visit Sales Enablement Lead - [address] [place] [address] Ace Shultz PA [address] [place] [address] Other fatigue (Primary Dx); Low libido Social History Tobacco Use Types Packs/Day Years [...] on file Sexual Orientation Not on file documented as of this encounter Last Filed Vital Signs Vital Sign Reading Time Taken Comments Blood Pressure 96/62 10/19/2024 8:43 AM EST Pulse 74 10/19/2024 8:43 AM EST Temperature - - Respiratory Rate 16 10/19/2024 8:43 AM EST Oxygen Saturation - - Inhaled Oxygen Concentration - - Weight 81.9 kg (180 lb 9.6 oz) 10/19/2024 8:43 A M EST Height - - Body Mass Index 25.91 09/25/2024 12:31 PM EST documented in this encounter Progress Notes * MAYLIN Miller - 10/19/2024 8:30 AM EST CHIEF COMPLAINT: Labs Only and Follow-up IDENTIFIER: Ace Epsinosa is a 29 y.o. old male. HPI: Aec Espinosa presents secondary to labs. Patient reports he is fatigued, experiencing low libido. Thinks he is deficient in testosterone. Otherwise he denies complaints. ROS: See HPI for pertinent positives and detailed description. General: See HPI PAST MEDICAL HISTORY: Patient Active Problem List Diagnosis Date Noted Syphilis 01/05/2023 Overweight (BMI 25.0-29.9) 11/25/2021 History of alcohol abuse 07/04/2021 Anxiety 06/10/2021 Chronic low back pain 06/10/2021 Past Surgical History: Procedure Laterality Date ANKLE SURGERY PROCEDURE: HISTORICAL ANKLE SURGERY SOCIAL HISTORY: Social History Tobacco Use Smoking status: Former Current packs/day: 1.00 Average packs/day: 1 pack/day for 8.1 years (8.1 ttl pk-yrs) Types: Cigarettes Start date: 09/13/2016 Smokeless tobacco: Former Substance Use Topics Alcohol use: Yes FAMILY HISTORY: Family History Problem Relation Name Age of Onset Diabetes Father No Known Problems Sister No Known Problems Brother No Known Problems Brother No Known Problems Brother No Known Problems Brother Depression Mother Family Status Relation Name Status Father Alive Sister Alive Brother Alive Brother Alive Brother Alive Brother Alive Mother (Not Specified) No partnership data on file MEDICATIONS DISCONTINUED/REORDERED: There are no discontinued medications. ACTIVE MEDICATIONS: No outpatient medications have been marked as taking for the 10/19/24 encounter (Office Visit) with MAYLIN Miller. ALLERGIES: Allergies Allergen Reactions Sulfa (Sulfonamide Antibiotics) Migraine headache PHYSICAL EXAM: Visit Vitals BP 96/62 Pulse 74 Resp 16 Wt 81.9 kg (180 lb 9.6 oz) BMI 25.91 kg/m?? Smoking Status Former BSA 2 m?? The patient is overweight. Approaches towards weight loss are encouraged per recommendations below: -Reviewed reduction and fatty/greasy/fast foods, increased aerobic exercise, and eating 4-5 small meals consistently throughout the day General: Alert, calm, no acute distress. HEENT: Normocephalic/atraumatic, EOMI. Skin: Warm, moist. Cardiovascular: Regular rate and rhythm. No murmurs, rubs, or gallops Lungs: CTA, no crackles, wheezes or rhonchi Neuro: COA x3. Psych: mood and affect appropriate for situation IMAGING: NA IMPRESSION: 1. Other fatigue 2. Low libido PLAN: Will check for testosterone deficiency. If deficient will have him return for repeat. Also screening for anemia, electrolyte disturbance, diabetes, thyroid dysfunction. We have discussed the above medication(s) at length. I have explained the indications as well as common side effects and risks. The patient understands and accepts these risks and wishes to proceed with the pharmacological treatment. All of the patient's questions were answered at this time. Pt voices understanding and is in agreement with the above plan. Symptoms and/or concerns that should warrant emergency evaluation/treatment have been discussed. Follow up evaluation will be based upon the plan as stated. If any questions should arise in the interim/future please contact the officefor assistance. Medication and lab orders: Orders Placed This Encounter Procedures Testosterone free, bioavailable and total Thyroid stimulating hormone with reflex to free t4 and free t3 CBC and differential Basic metabolic panel Other orders: None I have maintained a long-term, longitudinal relationship with this patient leading to the extensivework up, and management associated with the medical care of this patient. MAYLIN Miller on 10/19/2024 at 8:59 AM EST documented in this encounter Plan of Treatment Not on file documented as of this encounter Results * Basic metabolic panel (10/19/2024 9:55 AM EST) Sodium 138 133 - 145 mmol/L LAB CHEMISTRY METHOD 10/19/2024 10:35 AM EST [facility] Potassium 4.7 3.5 - 5.5 mmol/L LAB CHEMISTRY METHOD 10/19/2024 10:35 AM EST [facility] Chloride 106 96 - 110 mmol/L LAB CHEMISTRY METHOD 10/19/2024 10:35 AM EST [facility] CO2 27 21 - 32 mmol/L LAB CHEMISTRY METHOD 10/19/2024 10:35 AM [facility] Anion Gap 5 3 - 11 LAB CHEMISTRY METHOD 10/19/2024 10:35 AM [facility] Glucose 97 70 - 100 mg/dL LAB CHEMISTRY METHOD 10/19/2024 10:35 AM [facility] BUN 13 5 - 25 mg/dL LAB CHEMISTRY METHOD 10/19/2024 10:35 AM [facility] Creatinine 0.93 0.70 - 1.30 mg/dL LAB CHEMISTRY METHOD 10/19/2024 10:35 AM [facility] eGFR 113 >=60 mL/min/1. 73m2 LAB CHEMISTRY METHOD 10/19/2024 10:35 AM [facility] Comment:Calculation based on the??Chronic Kidney Disease Epidemiology Collaboration (CKD-EPI) equation refit??without adjustment for race. BUN/Creatinine Ratio 14.0 LAB CHEMISTRY METHOD 10/19/2024 10:35 AM [facility] Calcium 9.4 8.5 - 10.5 mg/dL LAB CHEMISTRY METHOD 10/19/2024 10:35 AM [facility] Blood Venous blood specimen / Unknown Venipuncture / Unknown 10/19/2024 9:55 AM EST 10/19/2024 10:04 AM EST us Ace CARLISLE LAB BLOOD ORDERABLES Fi nal Result [facility] [address] [place] [address], * Thyroid stimulating hormone with reflex to free t4 and free t3 (10/19/2024 9:55 AM EST) TSH 2.85 0.40 - 4.00 mcIU/mL LAB CHEMISTRY METHOD 10/19/2024 10:44 AM [facility] Blood Venous blood specimen / Unknown Venipuncture / Unknown 10/19/2024 9:55 AM EST 10/19/2024 10:04 AM EST Ace CARLISLE LAB BLOOD ORDERABLES Fi nal Result [facility] [address] [place] [address], * Testosterone free, bioavailable and total (10/19/2024 9:55 AM EST) Testosterone 487 229 - 902 ng/dL LAB CHEMISTRY METHOD 10/19/2024 11:46 AM [facility] Testosterone, Free 11.1 4.6 - 22.4 ng/dL LAB CHEMISTRY METHOD 10/19/2024 11:46 AM [facility] Testosterone, Bioavailable 243 110 - 575 ng/dL LAB CHEMISTRY METHOD 10/19/2024 11:46 AM [facility] Sex Hormone Binding 30.5 See Comment nmol/L LAB CHEMISTRY METHOD 10/19/2024 11:46 AM [facility] Comment: FEMALES: ??pre-menopausal ?? 10.8 [...] g/dL LAB CHEMISTRY METHOD 10/19/2024 11:46 AM [facility] Blood Venous blood specimen / Unknown Venipuncture / Unknown 10/19/2024 9:55 AM EST 10/19/2024 10:04 AM EST us Ace CARLISLE LAB BLOOD ORDERABLES Fi nal Result [facility] [address] [place] [address], documented in this encounter Visit Diagnoses Diagnosis Other fatigue- Primary Low libido documented in this encounter Care Teams Lasting Room Machine Operator Relationship Specialty Start Date End Date Ana Donaldson DO [facility] [place] [address] PCP - General Internal Medicine 07/19/24 documented as of this encounter
== END 2024-11-06 16:16 | disposition home or self-care (01) ==
LOC: HO.HID 15:54
PROVIDERS: PCP Emergency Medicine Emergency Medical Services; Visit Provider Internal Medicine
DX: A53.9 Syphilis, unspecified (principal)
CPT/HCPCS: 99213

== ENCOUNTER → 2024-11-06 15:54 | Outpatient (BNVA) | payer OTHER, SELFPAY | PROVIDERS: PCP Emergency Medicine Emergency Medical Services; Visit Provider Internal Medicine | DX: A53.9 Syphilis, unspecified (principal) | CPT/HCPCS: 99212 ==

== ENCOUNTER 2025-01-30 16:39 | Outpatient (REF) | payer OTHER, SELFPAY ==
--- OUTSIDE RECORDS SUMMARY | 2025-01-30 16:49 | XMS_ITS | Clinical Summary ---
Author Organization [address] Address [address] [place] [phone] Phone Care Team Providers Care Research Soil Scientist Name Role Phone Ana Donaldson DO Primary Care Provider [phone] Allergies Active Allergy Reactions Criticality Noted Date Comments Sulfa (Sulfonamide Antibiotics) 05/15 Migraine headache Medications clotrimazole (LOTRIMIN) 1 % cream Apply topically 2 (two) times a day for 14 days. 30 g 02/08/20 Active Active Problems Problem Noted Date Diagnosed Date Syphilis 01/05/2023 Overweight (BMI 25.0-29.9) 11/25/2021 History of alcohol abuse 07/04/2021 Anxiety 06/10/2021 Chronic low back pain 06/10/2021 Encounters Date Type Department Care Team Description 01/24/2025 5:45 PM EDT Office Visit Walk-In Clinic - [address] [address] Theodore Uribe PA Intertriginous candidiasis (Primary Dx) from Last 3 Months Immunizations Name Administration [...] Used Date Smoking Tobacco: Former Cigarettes 1 8.4 S tarted: 09/13/2016 Smokeless Tobacco: Former Tobacco [...] Sign Reading Time Taken Comments Blood Pressure 127/73 01/24/2025 5:33 PM EDT Pulse 70 01/24/2025 5:33 PM EDT Temperature 36.7 ??C (98 ??F) 01/24/2025 5:33 PM EDT Respiratory Rate 16 10/19/2024 8:43 AM EST Oxygen Saturation 98% 01/24/2025 5:33 PM EDT Inhaled Oxygen Concentration - - Weight 81.9 [...] of Health Screening 08/22/2022 COVID-19 Vaccine (1 - 2023-2 5 season) 2024 DTaP,Tdap,and Td Vaccines [...] age to complete this topic Meningococcal B Vaccine Aged Out No l onger eligible based on patient's age to complete [...] Procedure Name Priority Date/Time Associated Diagnosis Comments HEPATITIS PANEL, ACUTE WITH REFLEX TO CONFIRMATION Routine 09/25/2024 1:09 PM EST Dysuria HIV 1, 2 ANTIBODY, P24 ANTIGEN WITH REFLEX TO DIFFERENTIATION Routine 09/25/2024 1:09 PM EST Dysuria LIPID PANEL WITH REFLEX TO DIRECT LDL Routine 09/25/2024 1:09 PM EST Screening cholesterol level from Last 3 Months or Most Recently Relevant to Health Maintenance Results * HIV 1,2 antibody, p24 antigen with reflex to differentiation (09/25/2024 1:09 PM EST) HIV Combo AB/AG Negative Negative LAB CHEMISTRY METHOD 09/25/2024 7:01 PM EST [facility] Blood Venous blood specimen / Unknown Venipuncture / Unknown 09/25/2024 1:09 PM EST 09/25/2024 1:[address] [facility] - 09/25/2024 7:01 PM EST This [...] ORDERABLES Final Res ult Performing Organization Address City/[facility]/ZIP Co de Phone Number [facility] [address] [place] [address], [place] [phone] * (ABNORMAL) Lipid panel with reflex to direct LDL (09/25/2024 1:09 PM EST) Cholesterol 179 0 - 200 mg/dL LAB CHEMISTRY METHOD 09/25/2024 6:14 PM EST [facility] Triglycerides 61 0 - 150 mg/dL LAB CHEMISTRY METHOD 09/25/2024 6:14 PM EST [facility] HDL 63 >=40 mg/dL LAB CHEMISTRY METHOD 09/25/2024 6:14 PM EST [facility] LDL Calculated 104(H) 0 - 100 mg/dL LAB CHEMISTRY METHOD 09/25/2024 6:14 PM EST [facility] VLDL Cholesterol Lexa 12.2 mg/dL LAB CHEMISTRY METHOD 09/25/2024 6:14 PM EST [facility] Non HDL Chol. (LDL+VLDL) 116 <145 mg/dL LAB CHEMISTRY METHOD 09/25/2024 6:14 PM EST [facility] Chol/HDL Ratio 2.8 0.0 - 4.4 LAB CHEMISTRY METHOD 09/25/2024 6:14 PM [facility] Blood Venous blood specimen / Unknown Venipuncture / Unknown 09/25/2024 1:09 PM EST 09/25/2024 1:09 PM EST Radha Jefferson NP LAB BLOOD ORDERABLES Final Resul t Performing Organization Address [facility]/ZIP Co de Phone Number [facility] [address] [place] [address], [place] [phone] * Hepatitis panel, acute with reflex to confirmation (09/25/2024 1:09 PM EST) Hepatitis B Surface Ag Negative Negative LAB CHEMISTRY METHOD 09/25/2024 7:08 PM EST [facility] Hepatitis A Antibody IgM Negative Negative LAB CHEMISTRY METHOD 09/25/2024 7:08 PM EST [facility] Hep B Core IgM Negative Negative LAB CHEMISTRY METHOD 09/25/2024 7:08 PM EST [facility] Hepatitis C Antibody Negative Negative LAB CHEMISTRY METHOD 09/25/2024 7:08 PM EST [facility] Blood Venous blood specimen / Unknown Venipuncture / Unknown 09/25/2024 1:09 PM EST 09/25/2024 1:09 PM EST Virgilio Soni MD LAB BLOOD ORDERABLES Final Res ult Performing Organization Address [facility]/ZIP Co de Phone Number [facility] [address] [place] [address], [place] [phone] from Last 3 Months or Most Recently Relevant to Health Maintenance Insurance [facility] [employer] Care Teams Research Soil Scientist Relationship Specialty Start Date End Date Ana Donaldson DO [address] [place] [address] PCP - General Internal Medicine 07/19/24
--- OUTSIDE RECORDS SUMMARY | 2025-01-30 16:49 | XMS_ITS | Encounter Summary ---
Author Organization [facility] Address [address] [place] [address] Care Team Providers Care Manager Traffic Name Role Phone McrachnaAna rahman Primary Care Provider [phone] Reason for Visit * Reason Comments Rash Encounter Details Date Type Department Care Team (Late st Contact Info) Description 01/24/2025 5:45 PM EDT Office Visit Walk-In Clinic - [facility] [address] [place] [address] Theodore Uribe PA [address] [place] [address] Intertriginous candidiasis (Primary Dx) Social History Tobacco Use Types Packs/Day Years Used Date Smoking Tobacco: Former Cigarettes 1 8.4 S tarted: 09/13/2016 Smokeless Tobacco: Former Alcohol Use Standard Drinks/Week Comments Yes 0 [...] ??F) 01/24/2025 5:33 PM EDT Respiratory Rate - - Oxygen Saturation 98% 01/24/2025 5:33 PM EDT Inhaled Oxygen Concentration - - Weight - - Height - - Body Mass Index - - documented in this encounter Ordered Prescriptions Prescription Sig Dispense Quantity Refills Last Filled Start Date End Date clotrimazole (LOTRIMIN) 1 % cream Apply topically 2 (two) times a day for 14 days. 30 g 01/24/2025 documented in this encounter Progress Notes * MAYLIN Sosa - 01/24/2025 5:45 PM EDT CHIEF COMPLAINT: Chief Complaint Patient presents with Rash HPI: Ace Espinosa is a 29 y.o. old male presenting with approximately 2 weeks of a dry itchy area on the right thigh near the groin. Denies pain, fever, rashes involving the genitals, local lumps or swollen glands, penile discharge. The area flushes and gets hot and irritating when he takes a warm shower, improved after he dries off. ROS: Remainder of the 12 point review of symptoms unremarkable except for those idenitified in the HPI. PAST MEDICAL HISTORY: Patient Active Problem List Diagnosis Date Noted Syphilis 01/05/2023 Overweight (BMI 25.0-29.9) 11/25/2021 History of alcohol abuse 07/04/2021 Anxiety 06/10/2021 Chronic low back pain 06/10/2021 Past Surgical History: Procedure Laterality Date ANKLE SURGERY PROCEDURE: HISTORICAL ANKLE SURGERY SOCIAL HISTORY: Social History Tobacco Use Smoking status: Former Current packs/day: 1.00 Average packs/day: 1 pack/day for 8.4 years (8.4 ttl pk-yrs) Types: Cigarettes Start date: 09/13/2016 [...] have been marked as taking for the 01/24/25 encounter (Office Visit) with MAYLIN Sosa. ALLERGIES: Allergies Allergen Reactions Sulfa (Sulfonamide Antibiotics) Migraine headache PHYSICAL EXAM: Vitals: 01/24/25 1733 BP: 127/73 Pulse: 70 Temp: 36.7 ??C (98 ??F) SpO2: 98% CONSTITUTIONAL: alert, calm, cooperative, in no acute distress HEAD: normocephalic, atraumatic EYES: extraocular movement intact (EOMI), sclera non-icteric EARS: no hearing deficit noted NECK/THYROID: neck range of motion grossly intact SKIN: warm and dry. Medial / genitocrural aspect of right thigh is with an erythematous patchy rashwith satellite papules which has fine overlying white scale. No local reactive inguinal lymphadenopathy. No fluctuance, induration, crepitus, warmth, skin streaking, or tenderness. LUNGS: respirations regular rate and depth without acute distress EXTREMITIES: no clubbing, cyanosis, or edema NEUROLOGIC: alert and oriented, no tremor, cranial nerves II-XII grossly intact PSYCH: mood/affect full range, speech clear, good eye contact, cooperative with exam LABS/IMAGING: None Lab Results Component Value Date EGFR 113 10/19/2024 IMPRESSION: 1. Intertriginous candidiasis PLAN: The patient's PMH, problem list and medications were reviewed in reference to the above diagnosis/diagnoses. Based on ROS, HPI, and PE, suggestive of intertriginous candidiasis. No signs of bacterial infection. This does not appear consistent with a sexually transmitted infection with an STI review of systems appearing negative today. Educated patient to keep the area cool, clean, dry. Cool compresses, gentle pat dry. Baby powder ifexcessive sweat or moisture or rubbing of the skin. Initiate clotrimazole cream apply topically 2 times daily for 14 days. The risks and benefits of this medication were discussed with the patient. The patient understands the potential side effects and basic interactions of this medication. The patient is asked to call me or my colleagues if they begin to experience any difficulties with this medication. Advised to follow up with PCP in 14 days if symptoms do not improve. Advised to follow up with UC or PCP immediately for new or worsening symptoms. Educated on red flags symptoms. Advised to go to the ER or call 911 for these symptoms. Patient understands the plan. Patient verbalizes agreement with the plan. No orders of the defined types were placed in this encounter. Other orders clotrimazole (LOTRIMIN) 1 % cream; Apply topically 2 (two) times a day for 14 days. MAYLIN Sosa on 01/24/2025 at 5:54 PM EDT Today's documentation was made using voice recognition software. This note may contain grammatical errors secondary to this software. Cosigned by Graham Sy MD at 01/30/2025 10:37 AM EDT documented in this encounter Plan of Treatment Not on file documented as of this encounter Visit Diagnoses Diagnosis Intertriginous candidiasis- Primary documented in this encounter Care Teams Manager Traffic Relationship Specialty Start Date End Date Ana Donaldson DO [address] [place] [place] [address] PCP - General Internal Medicine 07/19/24 documented as of this encounter
--- OUTSIDE RECORDS SUMMARY | 2025-01-30 16:49 | XMS_ITS | Clinical Summary ---
Author Organization [facility] Address [address] [place] [address] Care Team Providers Care Lens Dotter Name Role Phone Unavailable Primary Care Provider [...] Advance Directives For more information, please contact: [phone] Latest Code Status on File Code Status Date Activated Date Inactivated Comments Full Code 01/02/2016 10:53 PM 01/03/2016 9:32 AM This code status was ascertained in the following way: discussion with patient.
[2025-01-31 14:08] LABS: RPR Rapid Plasma Reagin REACTIVE (NON-REACTIVE)
== END 2025-01-30 16:40 | disposition home or self-care (01) ==
LOC: HO.LAB 16:39
PROVIDERS: Visit Provider Internal Medicine
DX: Z13.89 Encounter for screening for other disorder (principal)
CPT/HCPCS: 36415; 86592; 86593

== ENCOUNTER 2025-02-07 16:24 | Outpatient (AMB) | payer OTHER, SELFPAY ==
[2025-02-07 16:41] VITALS: PULSE 67; O2SAT 99
--- NOTE | 2025-02-07 16:41 | MHC.OFFVIS ---
Vital Signs 02/07/25 16:41 Height 5 ft 10 in Pulse 67 Pulse Source Pulse Oximeter Pulse Oximetry (%) 99 Intake Visit Reasons: elevated RPR test/3 month followup Allergies Sulfa (Sulfonamide Antibiotics) Allergy (Unknown, Verified 02/07/25 16:41) Unknown HPI Comments Details: He has titer 1:2 and no symptoms RPR. At [facility] his titer was 1:32 10/26/2018 and then 02/08/2019 1:16 and FTA-ABS positive on 02/08/2019. His titer was 1:2 on [place]20[place] [facility] and has been so since. He has no symptoms of rash,JEFFRY,hearing or vision concerns. [facility] Medical History Syphilis Review of Systems Const All systems reviewed & are unremarkable except as noted in HPI and below Physical Exam Vital Signs: Last Vital Signs Pulse 67 02/07/25 16:41 Pulse Ox 99 02/07/25 16:41 Const General: cooperative Orientation/consciousness: patient oriented x3 HEENT Head: Yes normal to inspection Mouth: Normal oral and palatal mucosa present Eyes General: appearance normal, both eyes and all related structures Pupils: Equal, round and reactive pupils present Resp Effort & Inspection: normal respiratory effort Cardio Rate: regular rate Rhythm: regular rhythm GI Palpation (GI): Soft to palpation and nontender General: Yes no CVA tenderness Back/Spine/Pelvis Back: no CVA tenderness Skin General skin exam: no rashes or lesions noted Neuro General: patient oriented x3 Cranial nerves: Yes CN's II-XII intact bilaterally and Yes Equal, round and reactive pupils present Extrem General: Yes normal to inspection Psych Appearance: grossly normal Assessment & Plan Assessment & Plan (1) Syphilis: Comment: Prior syphilis. Not active. He is serofast at 1:2, Code(s): A53.9 - Syphilis, unspecified Category: Medical Plan: Stop checking titers unless symptoms of reinfection or new exposure. Patient aware and understands. Coding Level of Care Code Est Pt Level 3 (73923) Diagnoses Syphilis A53.9
== END 2025-02-07 17:00 | disposition home or self-care (01) ==
LOC: HO.HID 16:24
PROVIDERS: Visit Provider Internal Medicine
DX: A53.9 Syphilis, unspecified (principal)
CPT/HCPCS: 99213

== ENCOUNTER → 2025-02-07 16:24 | Outpatient (BNVA) | payer OTHER, SELFPAY | PROVIDERS: Visit Provider Internal Medicine | DX: A53.9 Syphilis, unspecified (principal) | CPT/HCPCS: 99212 ==